=== PATIENT | male | born 1970 | race Caucasian/White ===

== ENCOUNTER 2024-10-20 17:40 | Emergency (ER) | payer BC ==
[2024-10-20] MEDS: predniSONE 20 MG Tab PO ONE (20:14)
== END 2024-10-20 20:25 | disposition home or self-care (01) ==
LOC: MW.ED 17:40
DX: J40 Bronchitis, not specified as acute or chronic (principal); I10 Essential (primary) hypertension; Z79.82 Long term (current) use of aspirin; Z79.899 Other long term (current) drug therapy
CPT/HCPCS: 71046; 99283; A9270